=== PATIENT | male | born 1960 | race Caucasian/White ===

== ENCOUNTER 2019-04-21 04:45 | Inpatient (IN) | payer OTHER ==
[~2019-04-21] VITALS: Ht 185.4 cm; Wt 97.5 kg
--- NOTE | ~2019-04-21 | CON ---
[address] [address] CONSULTATION Name: BETH CHANDLER Room: [address] IN M.R.#: [id number] Admission: 04/21/19 Attend Phys: Aura Lee Discharge: Date of : 60 Report #: [id number] THIS REPORT FOR: //name// cc: JENNIFER Owen family physician/PCP JENNIFER - Lexie family physician/PCP ~ THIS REPORT FOR: //name// CC: JENNIFER physician/PCP Dinora Scott DATE OF SERVICE: 04/21/2019 INFECTIOUS DISEASE CONSULTATION REASON FOR CONSULTATION: I was asked to evaluate concerning abdominal skin wound and rash. HISTORY OF PRESENT ILLNESS: A 58-year-old with underlying history of hypertension and gout, noticed a suspected insect bite to his right abdomen yesterday morning. He did not see any insect, but it was a very sharp pain after he got a shower and had his robe on. He has seen brown recluse spiders in his house the year prior. Over the subsequent 12 hours, he developed diffuse rash, mild chills, temperature of 100 degrees, generalized weakness, tachycardia. The pain in his abdomen increased up to a 10/10 and he presented to the Emergency Room. There, he was afebrile. Pulse was 105, blood pressure 122/77. His laboratory studies were unremarkable. He was placed on antibiotic therapy after blood cultures were drawn. No fever has developed overnight. He feels better today. Still has pain in his right lower abdomen. He developed a black spot to the area where he felt the initial pain. PAST MEDICAL HISTORY: Hypertension and gout. ALLERGIES: None known. MEDICATIONS: Aspirin, allopurinol, antihypertensive med, he was not sure on. FAMILY HISTORY: No tuberculosis. SOCIAL HISTORY: Works in radio. No significant alcohol intake. Nonsmoker. Lives with his . No HIV risk factors. REVIEW OF SYSTEMS: A 10-point review of systems was negative other than what has been described above. PHYSICAL EXAMINATION: VITAL SIGNS: He is afebrile [place] [address] CONSULTATION Name: BETH CHANDLER Room: [address]#: [id number] Admission: 04/21/19 Attend Phys: Aura Lee Discharge: Date of : 60 Report #: [id number] SKIN: He had a necrotic area of skin to his right lower abdomen about 2 cm in diameter with a diffuse papular rash to his chest, abdomen and proximal lower extremities. No palpable adenopathy. HEENT: Eyes, without scleral icterus or conjunctivitis. Mouth without mucositis. NECK: Supple, with no thyromegaly or mass. LUNGS: Clear. HEART: Regular, without murmur. ABDOMEN: Soft, nontender with no hepatosplenomegaly or mass. The area of tissue necrosis was exquisitely tender. GENITOURINARY: External genitalia without lesion or mass. RECTAL: Examination not performed. BACK: Spine was nontender with no CVA tenderness. EXTREMITIES: Without clubbing, cyanosis or edema. NEUROLOGIC: Cranial nerves intact. Strength in his upper and lower extremities was normal. Sensation to touch upper and lower extremities was symmetric and within normal limits. Deep tendon reflexes in his knees was equal and within normal limits. LABORATORY STUDIES: Reviewed. Microbiology reports reviewed. IMPRESSION: 1. A 58-year-old with brown recluse spider bite and associated rash. He has a fair amount of tissue necrosis that has developed. No evidence of secondary bacterial infection at this point. 2. Hypertension, controlled. 3. History of gout. RECOMMENDATIONS: We will continue to monitor the area for any further tissue breakdown. Treat with cephalexin for the next 5 days. We will give 40 mg of prednisone a day and taper him over the next 5-7 days. If he ends up losing a large amount of tissue, may need surgical evaluation. At this point, local wound care. By: [id number] Badillo MD /nt
[2019-04-21 04:53] VITALS: BP 122/77
[2019-04-21] MEDS ORDERED: BLOOD PRESSURE PILL (04:56)
[2019-04-21] MEDS ORDERED: ALLOPURINOL 10100 M1 PO (04:57)
[2019-04-21] MEDS ORDERED: ASA81BEC PO (04:57)
[2019-04-21 06:33] LABS: HEMOGLOBIN 15.7 gm/dL (14.0-18.0); MCHC 34.1 g/dL (28.0-37.0); MPV 10.2 fl. (7.2-11.1); NUCLEATED RBCS 0 /100WBC; PLATELET COUNT* 166 thou/uL (150-400); RBC 5.23 mil/uL (4.50-6.00); RDW-CV 13.3 % (10.5-14.5); WBC 10.6 thou/uL (4.0-11.0)
[2019-04-21 07:11] LABS: CALCIUM 8.4 mg/dL (8.5-10.1); CREATININE 1.3 mg/dL (0.6-1.3); POTASSIUM 3.9 mmol/L (3.5-5.1)
[2019-04-21 07:15] LABS: ALBUMIN 3.7 g/dL (3.4-5.0); TOTAL BILIRUBIN 2.4 mg/dL (<0.1-1.0); TOTAL PROTEIN 6.8 g/dL (6.4-8.2)
[2019-04-21 07:35] LABS: ESR (SEDRATE) 1 mm/hr (0-20)
[2019-04-21 08:03] LABS: ABSOLUTE EOSINOPHILS 0.2 thou/uL (0.0-0.7); ABSOLUTE LYMPHOCYTES 0.1 thou/uL (0.8-5.3); ABSOLUTE MONOCYTES 1.1 thou/uL (0.0-1.2); ABSOLUTE NEUTROPHILS 9.2 thou/uL (1.6-8.1)
[2019-04-21 08:04] LABS: PLATELET ESTIMATE ADEQUATE
[2019-04-21 08:20] LABS: URINE BILIRUBIN NEGATIVE (Negative); URINE BLOOD NEGATIVE (Negative); URINE CLARITY CLEAR; URINE COLOR YELLOW; URINE GLUCOSE-RANDOM NEGATIVE (Negative); URINE KETONES NEGATIVE (Negative); URINE LEUKOCYTES-REFLEX NEGATIVE (Negative); URINE NITRITE-REFLEX NEGATIVE (Negative); URINE PROTEIN NEGATIVE (Negative); URINE SPECIFIC GRAVITY 1.015 (1.005-1.030); URINE UROBILINOGEN 0.2 E.U./dl (0.2-1.0)
[2019-04-21 11:09] VITALS: BP 125/72
[2019-04-21 11:14] VITALS: BP 125/72
--- NOTE | 2019-04-21 18:57 | NUR ---
PT A&OX4 VSS. PT UP AD RONDA, GAIT STEADY. PT ON ROOM, SAT 99%. IV TO RAC, PATENT. VANC DC'D PER DR COUGHLIN. PT REPORTS INSECT/SPIDER BITE TO RLQ. PT PRESENTS WITH RED RASH AND ELEVATED TEMPERATURE. PT REPORTS DISCOMFORT AT SITE. PT ON REGULAR DIET. NO C/O NAUSEA/VOMITING. PT RESTS IN BED WITH CALL LIGHT IN REACH. WILL CONTINUE TO MONITOR.
[2019-04-21 19:40] VITALS: BP 156/57
[2019-04-22 02:06] LABS: GLYCOHEMOGLOBIN (HGB A1C) 5.4 % (4.8-5.6)
[2019-04-22 05:03] LABS: HEMATOCRIT 39.3 % (42.0-52.0); MCH 30.5 pg (26.0-34.0); MCHC 34.4 g/dL (28.0-37.0); MCV 88.7 fL (80.0-100.0); MPV 10.2 fl. (7.2-11.1); RBC 4.43 mil/uL (4.50-6.00); RDW-CV 13.1 % (10.5-14.5)
[2019-04-22 05:15] LABS: HEMOGLOBIN 13.5 gm/dL (14.0-18.0)
[2019-04-22 05:38] LABS: ALBUMIN 3.1 g/dL (3.4-5.0); CALCIUM 8.5 mg/dL (8.5-10.1); CREATININE 0.9 mg/dL (0.6-1.3); MAGNESIUM 1.8 mg/dL (1.8-2.4); TOTAL BILIRUBIN 1.1 mg/dL (<0.1-1.0); TOTAL PROTEIN 6.2 g/dL (6.4-8.2)
--- NOTE | 2019-04-22 06:42 | NUR ---
PT ALERT AND ORIENTED. VSS ON RA. MEDS GIVEN PER EMAR. PAIN MEDS GIVEN THIS SHIFT. PT UP AD RONDA. PT SLEPT WELL THIS SHIFT. SPIDER BITE PICTURE TAKEN AND DOCUMENTED IN CHART. CALL LIGHT WITHIN REACH. HOURLY ROUNDINGS MADE. WILL CONTINUE TO MONITOR.
[2019-04-22 08:15] VITALS: BP 117/69
--- NOTE | 2019-04-22 17:35 | NUR ---
Remains A&OX4. Respirations remain even and unlabored on room air. Denies pain at this time. Medicated for pain per pt request and MD order. Up adlib in room and hallway without difficulties. Spider bite area on Rt flank seems different. Area marked and photos taken and placed in chart. Continues on IV atbx without s/sx of adverse reactions. Call mccain within reach. Nsg will continue to assess.
[2019-04-22 18:15] VITALS: BP 138/75
[2019-04-22 20:20] VITALS: BP 124/66
--- NOTE | 2019-04-23 04:32 | NUR ---
ASSUMED CARE AT 1900H, ON RA AND AMBULATORY. NO DISTRESS AND WITH TOLERABLE PAIN FROM THE INSECT BITE. CONTINUE MONITORING AND TOWARD GOALS.
[2019-04-23 04:38] LABS: HEMATOCRIT 37.9 % (42.0-52.0); HEMOGLOBIN 12.7 gm/dL (14.0-18.0); MCH 30.2 pg (26.0-34.0); MCHC 33.7 g/dL (28.0-37.0); MCV 89.6 fL (80.0-100.0); MPV 10.4 fl. (7.2-11.1); RBC 4.23 mil/uL (4.50-6.00); RDW-CV 13.5 % (10.5-14.5); WBC 13.7 thou/uL (4.0-11.0)
[2019-04-23 05:18] LABS: CALCIUM 8.4 mg/dL (8.5-10.1); CREATININE 1.1 mg/dL (0.6-1.3); MAGNESIUM 1.8 mg/dL (1.8-2.4); POTASSIUM 3.8 mmol/L (3.5-5.1)
[2019-04-23 07:45] VITALS: BP 111/75
[2019-04-23] MEDS ORDERED: PEPCID20 MG PO (11:41)
[2019-04-23] MEDS ORDERED: PREDNISONE 10 M10 MG PO (11:41)
[2019-04-23] MEDS ORDERED: ZYRTEC10 M5 PO (11:41)
--- NOTE | 2019-04-23 11:42 | EKG ---
[place] [address] ELECTROCARDIOGRAM REPORT Name: BETH CHANDLER Room: [address] ADM IN M.R.#: [id number] Admission: 04/21/19 Attend Phys: Dinora Scott Discharge: Date of : 60 Date of Service: 04/21/19 0732 Report #: [id number] THIS REPORT FOR: //name// [facility] ED Test Date: 2019-04-21 Test Time: 07:32:35 Pat Name: BETH CHANDLER Department: Room: [facility] Gender: M Network Systems Operator: CCD : [id number] Requested By: Lupe Gil Order Number: [id number] MD: Kosta Murdock Measurements Intervals [place] Rate: 81 P: 75 MD: 164 QRS: 69 QRSD: 95 T: -12 QT: 378 QTc: 439 Interpretive Statements Incomplete analysis due to missing data in precordial lead(s) Sinus rhythm Consider left atrial enlargement Borderline T wave abnormalities Missing lead(s): V5 Compared to ECG 09/15/2006 10:20:40 T-wave abnormality now present Sinus bradycardia no longer present Right-axis deviation no longer present Electronically Signed On 04-23-2019 11:41:13 CDT by Kosta Murdock [email or web address] <ELECTRONICALLY SIGNED> By: Kosta Murdock MD, [facility] 04/23/19 1141 1 Kosta Murdock MD, [facility] /EPI
[2019-04-23] MEDS ORDERED: KEFLEX500 M2 PO (11:47)
[2019-04-23 12:03] VITALS: BP 124/66
[2019-04-23 16:30] VITALS: BP 124/66
--- NOTE | 2019-04-23 17:00 | NUR ---
1640 DISCHARGED HOME. DISCHARGE INSTRUCTIONS EXPLAINED AND GIVEN.
== END 2019-04-23 16:40 | disposition home or self-care (01) | DRG 603 ==
LOC: M.ERS 04:45 → M.3W 06:53 → M.TBA-ER 06:53 → M.3W 11:21
PROVIDERS: Internal Medicine; Personal Emergency Response Attendant; ADMIT Internal Medicine
DX: L03.311 Cellulitis of abdominal wall (principal); L03.116 Cellulitis of left lower limb; L03.115 Cellulitis of right lower limb; R65.10 Systemic inflammatory response syndrome (SIRS) of non-infectious origin without acute organ dysfunction; S30.861A Insect bite (nonvenomous) of abdominal wall, initial encounter; I10 Essential (primary) hypertension; M10.9 Gout, unspecified; L03.319 Cellulitis of trunk, unspecified; W57.XXXA Bitten or stung by nonvenomous insect and other nonvenomous arthropods, initial encounter; Z79.899 Other long term (current) drug therapy; Z79.82 Long term (current) use of aspirin; Y93.89 Activity, other specified; Y92.89 Other specified places as the place of occurrence of the external cause; Y99.8 Other external cause status

== ENCOUNTER 2019-04-25 11:03 | Emergency (ER) | payer OTHER ==
[~2019-04-25] VITALS: Ht 185.4 cm; Wt 97.5 kg
[~2019-04-25 11:03] MED LIST: ALLOPURINOL 10100 M1 PO; ASA81BEC PO; BLOOD PRESSURE PILL; KEFLEX500 M2 PO; PEPCID20 MG PO; PREDNISONE 10 M10 MG PO; ZYRTEC10 M5 PO
[2019-04-25 12:43] LABS: HEMATOCRIT 40.1 % (42.0-52.0); HEMOGLOBIN 13.6 gm/dL (14.0-18.0); MCH 30.5 pg (26.0-34.0); MCV 89.6 fL (80.0-100.0); MPV 10.7 fl. (7.2-11.1); NUCLEATED RBCS 0 /100WBC; PLATELET COUNT* 204 thou/uL (150-400); RBC 4.48 mil/uL (4.50-6.00); RDW-CV 13.4 % (10.5-14.5)
[2019-04-25 13:06] LABS: CALCIUM 8.7 mg/dL (8.5-10.1); CREATININE 1.1 mg/dL (0.6-1.3); POTASSIUM 3.6 mmol/L (3.5-5.1)
[2019-04-25 13:10] LABS: ALBUMIN 3.3 g/dL (3.4-5.0); TOTAL BILIRUBIN 0.5 mg/dL (<0.1-1.0); TOTAL PROTEIN 6.4 g/dL (6.4-8.2)
[2019-04-25 13:23] LABS: ABSOLUTE LYMPHOCYTES 0.2 thou/uL (0.8-5.3); ABSOLUTE MONOCYTES 0.1 thou/uL (0.0-1.2); ABSOLUTE NEUTROPHILS 7.8 thou/uL (1.6-8.1); ANISOCYTOSIS 1+; PLATELET ESTIMATE ADEQUATE; POIKILOCYTOSIS 1+
[2019-04-25] MEDS ORDERED: HYDROXYZINE HCL25 M2 TOP ×2 (14:04→14:05)
[2019-04-25] MEDS ORDERED: BACTRIM DS TAB1 EAC1 PO ×2 (14:04→14:05)
[2019-04-25 14:27] VITALS: BP 154/92
== END 2019-04-25 14:28 | disposition home or self-care (01) ==
LOC: M.ERS 11:03
PROVIDERS: Nurse Practitioner Family
DX: T63.331A Toxic effect of venom of brown recluse spider, accidental (unintentional), initial encounter (principal); L03.311 Cellulitis of abdominal wall; L03.317 Cellulitis of buttock; Y92.89 Other specified places as the place of occurrence of the external cause